=== PATIENT | male | born 1955 | race Caucasian/White ===

== ENCOUNTER 2021-03-08 20:40 | Emergency (ER) | payer BC ==
[~2021-03-08] VITALS: Ht 198.1 cm; Wt 159.1 kg
[2021-03-08 20:44] VITALS: BP 148/90
== END 2021-03-08 22:50 | disposition home or self-care (01) ==
LOC: ER 20:41
DX: M70.22 Olecranon bursitis, left elbow (principal); M25.522 Pain in left elbow; Z88.2 Allergy status to sulfonamides
CPT/HCPCS: 99281

== ENCOUNTER 2021-04-28 23:02 | Emergency (ER) | payer BC ==
[~2021-04-28] VITALS: Ht 198.1 cm; Wt 156.8 kg
[2021-04-29 01:10] LABS: D-DIMER 0.39 MG/L FEU (0-0.50)
[2021-04-29] MEDS ORDERED: clindamycin 150mg capsule PO ONE (01:30)
[2021-04-29] MEDS ORDERED: CLIN150C2 PO (01:30)
[2021-04-29] MEDS ORDERED: TETanus/Pertussis (Acell)/Diphther VAC/PF (Tdap-Adult) 0.5ml syringe IMVAC ONE (01:30)
[2021-04-29 01:34] LABS: BASOPHILS % (AUTO) 0.8 % (0-1); EOSINOPHILS # (AUTO) 0.3 X10'3 (0-0.9); EOSINOPHILS % (AUTO) 4.8 % (0-6); HEMATOCRIT 46.5 % (42.0-52.0); HEMOGLOBIN 16.1 g/dl (14.0-17.9); LYMPHOCYTES # (AUTO) 1.8 X10'3 (1.1-4.8); LYMPHOCYTES % (AUTO) 33.7 % (21-51); MEAN CORPUSCULAR HEMOGLOBIN 30.9 PG (27.0-31.0); MEAN CORPUSCULAR HGB CONC 34.7 g/dL (33.0-36.5); MEAN CORPUSCULAR VOLUME 89.1 FL (78-98); MEAN PLATELET VOLUME 7.6 FL (7.4-10.4); MONOCYTES # (AUTO) 0.6 X10'3 (0-0.9); MONOCYTES % (AUTO) 11.1 % (2-12); NEUTROPHILS # (AUTO) 2.6 X10'3 (1.8-7.7); NEUTROPHILS % (AUTO) 49.6 % (42-75); PLATELET COUNT 185 X10'3 (140-440); RED BLOOD COUNT 5.21 X10'6 (4.70-6.10); RED CELL DISTRIBUTION WIDTH 14.3 % (11.5-14.5); WHITE BLOOD COUNT 5.3 X10'3 (4.5-11.0)
[2021-04-29 02:12] VITALS: BP 155/98
--- NOTE | 2021-04-29 02:13 | NUR ---
pt seen by provider and d/c prior to project management intern
== END 2021-04-29 02:13 | disposition home or self-care (01) ==
LOC: ER 23:03
DX: L03.116 Cellulitis of left lower limb (principal); M79.605 Pain in left leg; F17.200 Nicotine dependence, unspecified, uncomplicated; Z20.3 Contact with and (suspected) exposure to rabies; Z88.2 Allergy status to sulfonamides; Z79.2 Long term (current) use of antibiotics
CPT/HCPCS: 36415; 83605; 84145; 85025; 85379; 87040; 90471; 90715; 99283

== ENCOUNTER 2022-10-16 18:24 | Emergency (ER) | payer MEDICARE, BC | END 2022-10-16 19:32 | disposition home or self-care (01) | LOC: ER 18:25 | DX: T63.301A Toxic effect of unspecified spider venom, accidental (unintentional), initial encounter (principal); Z53.21 Procedure and treatment not carried out due to patient leaving prior to being seen by health care provider; Y92.9 Unspecified place or not applicable ==